=== PATIENT | female | born 1950 | race Two or more races ===

== ENCOUNTER 2017-12-16 11:12 | Outpatient (CLI) | payer OTHER | END 2017-12-16 11:20 | disposition home or self-care (01) | LOC: RAD 501 11:12 | DX: J06.9 Acute upper respiratory infection, unspecified (principal) ==

== ENCOUNTER 2018-02-15 11:57 | Outpatient (CLI) | payer OTHER | END 2018-02-15 12:02 | disposition home or self-care (01) | LOC: MAMO-SONO 11:57 | DX: Z12.31 Encounter for screening mammogram for malignant neoplasm of breast (principal); Z87.898 Personal history of other specified conditions; N60.11 Diffuse cystic mastopathy of right breast; N60.12 Diffuse cystic mastopathy of left breast ==

== ENCOUNTER 2018-08-15 14:59 | Outpatient (CLI) | payer OTHER | END 2018-08-15 15:02 | disposition home or self-care (01) | LOC: RAD 14:59 | DX: J06.9 Acute upper respiratory infection, unspecified (principal) ==

== ENCOUNTER 2019-02-07 09:35 | Outpatient (CLI) | payer OTHER | END 2019-02-07 09:36 | disposition home or self-care (01) | LOC: SONOGRAMA 09:35 → MAMO-SONO 11:15 | DX: R74.8 Abnormal levels of other serum enzymes (principal) ==

== ENCOUNTER → 2019-03-14 | Outpatient (CLI) | payer OTHER | END | disposition home or self-care (01) | LOC: TOM 08:28 | DX: Z12.31 Encounter for screening mammogram for malignant neoplasm of breast (principal); Z87.898 Personal history of other specified conditions; D49.3 Neoplasm of unspecified behavior of breast; K57.10 Diverticulosis of small intestine without perforation or abscess without bleeding ==

== ENCOUNTER → 2020-03-20 | Outpatient (CLI) | payer OTHER | END | disposition home or self-care (01) | LOC: MAMO-SONO 11:11 | DX: Z12.31 Encounter for screening mammogram for malignant neoplasm of breast (principal); Z87.898 Personal history of other specified conditions; N60.11 Diffuse cystic mastopathy of right breast; N60.12 Diffuse cystic mastopathy of left breast ==

== ENCOUNTER 2020-06-11 10:59 | Outpatient (CLI) | payer OTHER | END 2020-06-11 11:07 | disposition home or self-care (01) | LOC: SONOGRAMA 10:59 → MAMO-SONO 11:15 | PROVIDERS: ATTEND Internal Medicine | DX: M75.101 Unspecified rotator cuff tear or rupture of right shoulder, not specified as traumatic (principal) ==

== ENCOUNTER 2020-06-18 11:58 | Outpatient (CLI) | payer OTHER | END 2020-06-18 12:02 | disposition home or self-care (01) | LOC: NUCLEAR 11:58 | PROVIDERS: ATTEND Internal Medicine | DX: M81.0 Age-related osteoporosis without current pathological fracture (principal) ==

== ENCOUNTER → 2020-10-22 | Outpatient (CLI) | payer OTHER | END | disposition home or self-care (01) | LOC: MAMO-SONO 09:15 → SONOGRAMA 09:20 | PROVIDERS: ATTEND Internal Medicine Gastroenterology | DX: R10.31 Right lower quadrant pain (principal) ==

== ENCOUNTER 2020-12-10 08:46 | Outpatient (CLI) | payer OTHER | END 2020-12-10 08:59 | disposition HB | LOC: TOM 08:46 | DX: K86.89 Other specified diseases of pancreas (principal); M77.31 Calcaneal spur, right foot; R10.31 Right lower quadrant pain; R10.32 Left lower quadrant pain ==

== ENCOUNTER 2021-03-11 07:06 | Outpatient (CLI) | payer OTHER | END 2021-03-11 07:18 | disposition home or self-care (01) | LOC: SONOGRAMA 07:06 → MAMO-SONO 08:15 | PROVIDERS: ATTEND Internal Medicine Gastroenterology | DX: R94.5 Abnormal results of liver function studies (principal) ==

== ENCOUNTER → 2021-03-27 | Outpatient (CLI) | payer OTHER | END | disposition home or self-care (01) | LOC: MAMO-SONO 08:57 | PROVIDERS: ATTEND Surgery Surgical Oncology | DX: Z12.31 Encounter for screening mammogram for malignant neoplasm of breast (principal); Z87.898 Personal history of other specified conditions; N60.11 Diffuse cystic mastopathy of right breast; N60.12 Diffuse cystic mastopathy of left breast ==

== ENCOUNTER 2021-07-17 13:04 | Outpatient (CLI) | payer OTHER | END 2021-07-17 13:42 | disposition home or self-care (01) | LOC: MRI 13:04 | PROVIDERS: ATTEND Physical Medicine & Rehabilitation | DX: M54.5 Low back pain (principal); M54.16 Radiculopathy, lumbar region | CPT/HCPCS: 72148 ==

== ENCOUNTER 2022-01-06 07:44 | Outpatient (CLI) | payer OTHER | END 2022-01-06 07:46 | disposition home or self-care (01) | LOC: RX STUDY 07:44 | PROVIDERS: ATTEND Internal Medicine Gastroenterology | DX: R13.0 Aphagia (principal) ==

== ENCOUNTER 2022-03-31 09:04 | Outpatient (CLI) | payer OTHER | END 2022-03-31 09:09 | disposition home or self-care (01) | LOC: MAMO-SONO 09:04 | PROVIDERS: ATTEND Surgery Surgical Oncology | DX: N60.11 Diffuse cystic mastopathy of right breast (principal); N60.12 Diffuse cystic mastopathy of left breast ==

== ENCOUNTER 2022-03-31 10:39 | Outpatient (CLI) | payer OTHER | END 2022-03-31 10:40 | disposition home or self-care (01) | LOC: NUCLEAR 10:39 | PROVIDERS: ATTEND Internal Medicine | DX: M81.0 Age-related osteoporosis without current pathological fracture (principal) ==

== ENCOUNTER 2022-04-21 08:17 | Outpatient (CLI) | payer OTHER | END 2022-04-21 08:30 | disposition home or self-care (01) | LOC: SONOGRAMA 08:17 | PROVIDERS: ATTEND Internal Medicine | DX: R10.9 Unspecified abdominal pain (principal); N94.9 Unspecified condition associated with female genital organs and menstrual cycle; M54.50 Low back pain, unspecified; M13.852 Other specified arthritis, left hip ==

== ENCOUNTER 2023-02-25 10:13 | Outpatient (CLI) | payer OTHER | END 2023-02-25 10:15 | disposition home or self-care (01) | LOC: LAB 10:13 | PROVIDERS: ATTEND Radiology Diagnostic Radiology | DX: R10.9 Unspecified abdominal pain (principal) ==

== ENCOUNTER 2023-03-04 08:47 | Outpatient (CLI) | payer OTHER | END 2023-03-04 08:51 | disposition home or self-care (01) | LOC: TOM 08:47 | PROVIDERS: ATTEND Internal Medicine Gastroenterology | DX: R10.31 Right lower quadrant pain (principal) | CPT/HCPCS: 74178; Q9965 ==

== ENCOUNTER 2023-04-01 08:32 | Outpatient (CLI) | payer OTHER | END 2023-04-01 08:46 | disposition home or self-care (01) | LOC: SONOGRAMA 08:32 | PROVIDERS: ATTEND Surgery Surgical Oncology | DX: D48.61 Neoplasm of uncertain behavior of right breast (principal) ==

== ENCOUNTER 2024-01-18 08:20 | Outpatient (CLI) | payer OTHER | END 2024-01-18 08:34 | disposition home or self-care (01) | LOC: TOM 08:20 | PROVIDERS: ATTEND Internal Medicine | DX: M25.551 Pain in right hip (principal) ==

== ENCOUNTER 2024-06-06 10:16 | Outpatient (CLI) | payer OTHER | END 2024-06-06 10:22 | disposition home or self-care (01) | LOC: MAMO-SONO 10:16 | PROVIDERS: ATTEND Internal Medicine | DX: D49.3 Neoplasm of unspecified behavior of breast (principal); Z12.31 Encounter for screening mammogram for malignant neoplasm of breast ==

== ENCOUNTER 2024-10-24 10:00 | Outpatient (CLI) | payer OTHER | END 2024-10-24 10:05 | disposition home or self-care (01) | LOC: SONOGRAMA 10:00 | PROVIDERS: ATTEND Internal Medicine | DX: M75.101 Unspecified rotator cuff tear or rupture of right shoulder, not specified as traumatic (principal); M25.512 Pain in left shoulder ==

== ENCOUNTER 2025-04-12 07:21 | Outpatient (CLI) | payer OTHER | END 2025-04-12 07:25 | disposition home or self-care (01) | LOC: TOM 07:21 | PROVIDERS: ATTEND Internal Medicine Gastroenterology | DX: R10.31 Right lower quadrant pain (principal) | CPT/HCPCS: 74178; Q9965 ==

== ENCOUNTER 2025-04-19 12:22 | Outpatient (CLI) | payer OTHER | END 2025-04-19 12:24 | disposition home or self-care (01) | LOC: NUCLEAR 12:22 | PROVIDERS: ATTEND Internal Medicine | DX: M81.0 Age-related osteoporosis without current pathological fracture (principal) ==

== ENCOUNTER 2025-06-14 08:15 | Outpatient (CLI) | payer OTHER | END 2025-06-14 08:25 | disposition home or self-care (01) | LOC: MAMO-SONO 08:15 | DX: D49.3 Neoplasm of unspecified behavior of breast (principal); Z12.31 Encounter for screening mammogram for malignant neoplasm of breast ==